=== PATIENT | male | born 1955 | race Caucasian/White ===

== ENCOUNTER 2022-08-05 05:27 | Emergency (ER) | payer MEDICARE, OTHER ==
[2022-08-05] MEDS ORDERED: Sodium Chloride 0.9% 10 ML Syringe FLUSH PRN (05:47)
[2022-08-05] MEDS ORDERED: Morphine 2 MG/ML SYRINGE IVPUSH ONE (05:49)
== END 2022-08-05 08:59 | disposition home or self-care (01) ==
LOC: JD.ED 05:27
DX: K80.20 Calculus of gallbladder without cholecystitis without obstruction (principal)
CPT/HCPCS: 36415; 71045; 71045-26; 76705; 76705-26; 80053; 83690; 84484; 85025; 85379; 93005; 99285; J3490